=== PATIENT | male | born 1975 | race Caucasian/White ===

== ENCOUNTER 2017-05-27 23:23 | Emergency (ER) | payer SELFPAY ==
[~2017-05-27] VITALS: Ht 182.9 cm; Wt 106.0 kg
[~2017-05-27 23:23] MED LIST: HYDR-3533 PO
[2017-05-27 23:28] VITALS: BP 132/86; PULSE 84; RESP 18; TEMP 98.3; O2SAT 99
--- NOTE | 2017-05-27 23:57 | PD ---
HPI Chief Complaint: Bite or Sting Time Seen by Provider: 23:57 Travel History International Travel<30 days: No Contact w/Intl Traveler<30days: No History of Present Illness HPI 41-year-old male presents to the emergency Department with several wasp bites which occurred yesterday. Patient was bit on the right distal pinky , left anterior upper arm, and right posterior alberto. Patient states mild swelling of the right distal pinky, reaction on the lower leg, but increase swelling, erythema, and warmth to the left upper arm. He states there is some mild itching associated with it. He denies fever, chills, wheezing, shortness of breath, difficulty swallowing or other constitutional symptoms. He has minimal pain. He has no known drug allergies. Patient has unknown tetanus status. PFSH Past Medical History Cancer: No Cardiovascular Problems: No Diabetes: No Diminished Hearing: No Endocrine: No Genitourinary: No Immune Disorder: No Implanted Vascular Access Dvce: No Musculoskeletal: No Neurologic: No Psychiatric: No Reproductive: No Respiratory: No Immunizations Current: No Past Surgical History Oral Surgery: Yes (WISDOM TEETH) Other Surgery: Yes Social History Alcohol Use: Yes (ON WEEKENDS ) Tobacco Use: No Substance Use: No Allergies-Medications (Allergen,Severity, Reaction): Coded Allergies: No Known Allergies (Verified , 12/27/14) Reported Meds & Prescriptions Reported Meds & Active Scripts Active Lortab 5 mg/325 mg (Hydrocodone/Acetaminophen 5 mg/325 mg) 1 Tab 1 Tab PO Q6H PRN Review of Systems Except as stated in HPI: all other systems reviewed are Neg General / Constitutional: No: Fever, Chills Eyes: No: Visual changes HENT: No: Headaches Cardiovascular: No: Chest Pain or Discomfort Respiratory: No: Shortness of Breath Gastrointestinal: No: Abdominal Pain Genitourinary: No: Dysuria Musculoskeletal: No: Pain Skin: Positive Lesions (see history of present illness), No Rash Neurologic: No: Weakness Psychiatric: No: Depression Endocrine: No: Polydipsia Hematologic/Lymphatic: No: Easy Bruising Physical Exam Narrative GENERAL: Patient is in no acute distress. SKIN: Warm and dry. Normal color. Normal turgor. Patient has moderate swelling to the anterior right proximal forearm, anterior upper arm approximately two thirds up the bicep area. There is erythema and induration without significant tenderness or obvious lymphangitis. There is no significant tenderness in the trochlear lymph nodes or axillary lymph nodes on the left. Patient has small area of swelling on the right distal pinky. HEAD: Atraumatic. Normocephalic. EYES: Pupils equal and round. No scleral icterus. No injection or drainage. ENT: No nasal bleeding or discharge. Mucous membranes pink and moist. Pharynx is clear. Airway is patent. NECK: Trachea midline. Supple and nontender. CARDIOVASCULAR: Regular rate and rhythm. No murmurs gallops or rubs. RESPIRATORY: No accessory muscle use. Clear to auscultation. Breath sounds equal bilaterally. MUSCULOSKELETAL: Extremities without clubbing, cyanosis, or edema. No obvious deformities. NEUROLOGICAL: Awake and alert. No obvious cranial nerve deficits. Motor grossly within normal limits. Five out of 5 muscle strength in the arms and legs. Normal speech. PSYCHIATRIC: Appropriate mood and affect; insight and judgment normal. Data Data Last Documented VS Vital Signs Date Time Temp Pulse Resp B/P (MAP) Pulse Ox O2 Delivery O2 Flow Rate FiO2 05/27/17 23:28 98.3 84 18 132/86 (101) 99 Orders Orders Ibuprofen (Motrin) (05/28/17 00:15) Tetanus/Diphtheria Tox Adult (Tetanus/Di (05/28/17 00:15) Sulfamet-Trimeth Ds 800-160 Mg (Bactrim (05/28/17 00:15) MDM Medical Decision Making Medical Screen Exam Complete: Yes Emergency Medical Condition: Yes Differential Diagnosis Insect bite. Local allergic reaction. Cellulitis. Tenderness. Need for tetanus Narrative Course Patient is medically stable at time of exam. Patient is given tetanus 0.5 mg IM. Patient is given Bactrim DS by mouth 1. Patient is given ibuprofen 800 mg by mouth now. Patient continued on Bactrim DS twice a day 7 days. Patient continued on ibuprofen 800 mg 3 times daily. 30. The erythematous area is marked so that the patient can watch it for improvement. Recommended trial of Benadryl as well as the above treatment plan. Patient is to follow up if symptoms do not improve in the next 24-48 hours as discussed. Diagnosis Primary Impression: Insect bite of arm, left, infected Qualified Codes: S40.862A - Insect bite (nonvenomous) of left upper arm, initial encounter; L08.9 - Local infection of the skin and subcutaneous tissue, unspecified; W57.XXXA - Bitten or stung by nonvenomous insect and other nonvenomous arthropods, initial encounter Referrals: [facility] Primary Care Physician Patient Instructions: Cellulitis (ED), General Instructions, Insect Bite or Sting (ED) Additional Instructions: Patient is given tetanus 0.5 mg IM. Patient is given Bactrim DS by mouth 1. Patient is given ibuprofen 800 mg by mouth now. Patient continued on Bactrim DS twice a day 7 days. Patient continued on ibuprofen 800 mg 3 times daily. 30. The erythematous area is marked so that the patient can watch it for improvement. Recommended trial of Benadryl as well as the above treatment plan. Patient is to follow up if symptoms do not improve in the next 24-48 hours as discussed. Med/Other Pt SpecificInfo: Prescription(s) given Disposition: 01 DISCHARGE HOME Condition: Stable Florencio Mack May 27, 2017 23:57
[2017-05-28] MEDS ORDERED: IBUP800T23 PO (00:09)
[2017-05-28] MEDS ORDERED: BACT800T5 PO (00:09)
[2017-05-28] MEDS ORDERED: SULFAMETHOXAZOLE-TRIMETHOPRIM DS 800-160 MG TAB PO ONE (00:15)
[2017-05-28] MEDS ORDERED: TETANUS/DIPHTHERIA TOXOID ADULT 0.5 ML VIAL IM ONE (00:15)
[2017-05-28] MEDS ORDERED: IBUPROFEN 800 MG TAB PO ONE (00:15)
== END 2017-05-28 00:32 | disposition home or self-care (01) ==
LOC: PHED 23:23
DX: S40.862A Insect bite (nonvenomous) of left upper arm, initial encounter (principal); W57.XXXA Bitten or stung by nonvenomous insect and other nonvenomous arthropods, initial encounter; L08.9 Local infection of the skin and subcutaneous tissue, unspecified
CPT/HCPCS: 90471; 90714